=== PATIENT | male | born 1945 | race Caucasian/White ===

== ENCOUNTER 2022-08-17 11:03 | Day surgery (SDC) | payer OTHER ==
[~2022-08-17] VITALS: Ht 172.7 cm; Wt 69.1 kg
[~2022-08-17 11:03] MED LIST: ALBU90OI INH; DOC250 PO; FISH OIL 1,2001 EAC7 PO; Flagyl500 MG PO; Flonase 0.05% N16 GM; GABA400 PO; HYDACE10B PO; HYDACE5 PO; HYDPAM50 PO; LIDO4TS50 TOP; LOPE2C PO; Lisinopril-Hct1 EAC4 PO; METH10 PO; MIRT30 PO; MORP60ER PO; MOTION RELIEF25 MG PO; MULVITA PO; NORT25 PO; OMEP20ER PO; PARO10 PO; PRAZ2 PO; SENN187 PO; SERT100 PO; Zofran8 MG PO
[2022-08-17] MEDS ORDERED: PARO10 PO (12:30)
[2022-08-17] MEDS ORDERED: DRAMAMINE25 M2 PO (12:30)
[2022-08-17] MEDS ORDERED: TRAZ50 PO (12:30)
--- NOTE | 2022-08-17 12:37 | NUR ---
08/17/22 1237 Simran Echevarria CALL LIGHT WITHIN REACH. JUAN IN AT 1220 IN LEFT EYE PLEMAHESHETT IN AT 1223
--- NOTE | 2022-08-17 13:48 | NUR ---
08/17/22 [address] STAFFORD, PT GIVEN TUBE OF ERYTHROMYCIN OPHTHALMIC OINTMENT MCFP 0.5%. PT ADVISED BY DR STAFFORD TO APPLY SMALL AMOUNT ON BOTTOM OF EYELID IF HAVING DISCOMFORT.
== END 2022-08-17 13:54 | disposition home or self-care (01) ==
LOC: ORSCSDS 11:03
PROVIDERS: Ophthalmology
PROC: 08RK3JZ Replacement of Left Lens with Synthetic Substitute, Percutaneous Approach (ICD-10-PCS; principal; 2022-08-17 12:30)
PROC: 08933ZZ Drainage of Left Anterior Chamber, Percutaneous Approach (ICD-10-PCS; principal; 2022-08-17 12:30)
DX: H25.12 Age-related nuclear cataract, left eye (principal); H40.1121 Primary open-angle glaucoma, left eye, mild stage; F32.A Depression, unspecified; I10 Essential (primary) hypertension; J44.9 Chronic obstructive pulmonary disease, unspecified; B19.20 Unspecified viral hepatitis C without hepatic coma; G47.31 Primary central sleep apnea; F43.10 Post-traumatic stress disorder, unspecified; Z79.51 Long term (current) use of inhaled steroids; Z79.899 Other long term (current) drug therapy; Z87.891 Personal history of nicotine dependence
CPT/HCPCS: A9270; J0360; J2001; J2250; J3010; J3301; J7040; V2632

== ENCOUNTER 2022-08-24 11:06 | Day surgery (SDC) | payer OTHER ==
[~2022-08-24] VITALS: Ht 172.7 cm; Wt 68.5 kg
[~2022-08-24 11:06] MED LIST changes: +DRAMAMINE25 M2 PO; +TRAZ50 PO
== END 2022-08-24 13:44 | disposition home or self-care (01) ==
LOC: ORSCSDS 11:06
PROVIDERS: Ophthalmology
PROC: 08DJ3ZZ Extraction of Right Lens, Percutaneous Approach (ICD-10-PCS; principal; 2022-08-24 12:30)
DX: H25.11 Age-related nuclear cataract, right eye (principal); Z96.1 Presence of intraocular lens; H40.1110 Primary open-angle glaucoma, right eye, stage unspecified; I10 Essential (primary) hypertension; G47.33 Obstructive sleep apnea (adult) (pediatric); F43.10 Post-traumatic stress disorder, unspecified; F32.A Depression, unspecified; B19.20 Unspecified viral hepatitis C without hepatic coma; Z87.891 Personal history of nicotine dependence; Z79.899 Other long term (current) drug therapy
CPT/HCPCS: J2001; J2250; J3010; J3301; J7040; V2632

== ENCOUNTER 2022-11-29 17:01 | Inpatient (IN) | payer OTHER ==
[~2022-11-29] VITALS: Ht 172.7 cm; Wt 66.9 kg
[~2022-11-29 17:01] MED LIST changes: +GLYDO11 ML TOP; -LIDO4TS50 TOP
[2022-11-29] MEDS ORDERED: PARO10 PO (17:29)
[2022-11-29] MEDS ORDERED: GUAI600T33 PO (17:29)
[2022-11-29] MEDS ORDERED: DULERA 100 MCG/13 GM INH (17:29)
[2022-11-29] MEDS ORDERED: KETO.5OPSO BOTHEYES (17:30)
[2022-11-29] MEDS ORDERED: PANTOPRAZOLE SO40 M1 PO (17:30)
[2022-11-29] MEDS ORDERED: Voltaren100 GM TOP (17:31)
[2022-11-29 18:20] LABS: Base Excess Venous 2.5 mmol/L; Bicarbonate Venous 25.2 mmol/L (24.0-30.0); PCO2 Venous 49.5 mmHg (38-42); pH Blood Venous 7.36 (7.34-7.37)
[2022-11-29 19:35] LABS: BASOPHILS ABSOLUTE AUTO 0.04 K/mm3 (0.00-0.23); BASOPHILS PERCENT AUTO 1 % (0-2); EOSINOPHILS ABSOLUTE AUTO 0.11 K/mm3 (0.00-0.68); EOSINOPHILS PERCENT AUTO 2 % (0-6); Hematocrit 36.5 % (37.0-53.0); IMMATURE GRAN ABSOLUTE AUTO 0.03 K/mm3 (0.00-0.10); IMMATURE GRAN PERCENT AUTO 1 % (0-1); LYMPHOCYTES PERCENT AUTO 18 % (21-46); MONOCYTES ABSOLUTE AUTO 0.53 K/mm3 (0.16-1.47); MONOCYTES PERCENT AUTO 8 % (4-13); Mean Corpuscular HGB 28.9 pg (26.0-34.0); Mean Corpuscular HGB Conc 32.9 g/dL (31.5-36.5); Mean Corpuscular Volume 88 fL (80-100); Mean Platelet Volume 9.4 fL (9.1-12.4); NEUTROPHILS ABSOLUTE AUTO 4.68 K/mm3 (1.96-9.15); NEUTROPHILS PERCENT AUTO 71 % (41-73); Platelet Count 233 K/mm3 (150-400); RDW Standard Deviation 48.5 fL (35.1-46.3); Red Blood Cell Count 4.15 M/mm3 (4.30-5.90); White Blood Cell Count 6.59 K/mm3 (4.00-11.30)
[2022-11-29 20:07] LABS: Albumin, Blood 2.7 g/dL (3.4-5.0); Albumin/Globulin Ratio 0.7 (0.8-1.8); Bilirubin, Total 0.5 mg/dL (0.1-1.0); Bun/Creatinine Ratio 16.9 (12.0-20.0); Calcium, Blood 8.2 mg/dL (8.5-10.1); Creatinine, Blood 0.89 mg/dL (0.60-1.20); Globulin, Blood 4.1 g/dL (2.2-4.0); Potassium, Blood 3.8 mmol/L (3.5-5.5); Total Protein, Blood 6.8 g/dL (6.4-8.2)
[2022-11-29 20:56] VITALS: BP 150/98
[2022-11-29] MEDS ORDERED: FERSU300 PO (20:58)
--- NOTE | 2022-11-29 22:20 | NUR ---
PATIENT IS A NEW ADMIT FROM THE ED. AXOX 4 AND ONE ASSIST FROM RNORTHAMPTON TO BED. ON 6L O2 NC AND REPORTS RA BASELINE. SOB W/EXERTION. DENIES CHEST PAIN AND N/V. REPORTS NECK PAIN FROM [place]. ORIENTED TO ROOM AND CALL LIGHT SYSTEM. FOOD PROVIDED PER DIET ORDER. WATCHING TV AFTER ASSESSMENT. WCTM
[2022-11-30 03:37] VITALS: BP 141/110
--- NOTE | 2022-11-30 04:04 | NUR ---
SHIFT SUMMARY PATIENT HAD NO ACUTE CHANGES. AXOX 4 AND SBA TO BSC. USES URINAL AT BEDSIDE. ON 6L O2 NC AND SOB W/EXERTION. ROOM AIR BASELINE REPORTING HE JUST HAD OXYGEN DELIVERED TO HIS HOME. [facility] PATIENT. VSS/AFEBRILE. DENIES CHEST PAIN AND N/V. PIV REMAINS INTACT. IV SOLU MEDROL GIVEN PER EMAR. REPORTED NECK PAIN X ONE AND NORCO GIVEN PER EMAR. CALL LIGHT IN REACH. BED IN LOWEST POSITION. WILL CONTINUE TO MONITOR UNTIL DAY SHIFT NURSE ASSUMES CARE.
[2022-11-30 05:33] LABS: BASOPHILS ABSOLUTE AUTO 0.01 K/mm3 (0.00-0.23); BASOPHILS PERCENT AUTO 0 % (0-2); EOSINOPHILS ABSOLUTE AUTO 0.01 K/mm3 (0.00-0.68); EOSINOPHILS PERCENT AUTO 0 % (0-6); Hematocrit 40.3 % (37.0-53.0); Hemoglobin 13.5 g/dL (13.5-17.5); IMMATURE GRAN ABSOLUTE AUTO 0.02 K/mm3 (0.00-0.10); IMMATURE GRAN PERCENT AUTO 0 % (0-1); LYMPHOCYTES ABSOLUTE AUTO 0.41 K/mm3 (0.84-5.20); LYMPHOCYTES PERCENT AUTO 9 % (21-46); MONOCYTES ABSOLUTE AUTO 0.06 K/mm3 (0.16-1.47); MONOCYTES PERCENT AUTO 1 % (4-13); Mean Corpuscular HGB 29.2 pg (26.0-34.0); Mean Corpuscular HGB Conc 33.5 g/dL (31.5-36.5); Mean Corpuscular Volume 87 fL (80-100); Mean Platelet Volume 10.2 fL (9.1-12.4); NEUTROPHILS PERCENT AUTO 89 % (41-73); Platelet Count 254 K/mm3 (150-400); RDW Coefficient Variation 15.1 % (11.7-14.2); RDW Standard Deviation 47.4 fL (35.1-46.3); Red Blood Cell Count 4.63 M/mm3 (4.30-5.90); White Blood Cell Count 4.71 K/mm3 (4.00-11.30)
[2022-11-30 06:00] LABS: Bun/Creatinine Ratio 16.9 (12.0-20.0); Calcium, Blood 8.8 mg/dL (8.5-10.1); Creatinine, Blood 0.77 mg/dL (0.60-1.20); Potassium, Blood 4.4 mmol/L (3.5-5.5)
[2022-11-30 06:08] LABS: BAND PERCENT MAN 1 % (0-8); BASOPHILS PERCENT MAN 0 % (0-2); EOSINOPHILS PERCENT MAN 0 % (0-6); LYMPHOCYTES ABSOLUTE MAN 0.18 K/mm3 (0.84-5.20); LYMPHOCYTES PERCENT MAN 4 % (21-46); MONOCYTES PERCENT MAN 0 % (4-13); NEUTROPHILS ABSOLUTE MAN 4.52 K/mm3 (1.96-9.15); SEG NEUTROPHILS PERCENT MAN 95 % (41-73); TOTAL CELLS COUNTED 100
[2022-11-30 08:01] VITALS: BP 130/84
[2022-11-30 15:00] VITALS: BP 118/76
--- NOTE | 2022-11-30 16:20 | NUR ---
SHIFT SUMMARY PT A&OX4 AND IN PLEASENT MOOD T/O SHIFT. PAIN MEDICATED PER EMAR. VSS. 5L NC, ATTEMPTED TO TITRATE OX-PT DID NOT TOLERATE AT THIS TIME. FRIENDS IN TO SEE PT T/O VISITING HOURS. SBA. VSS. CALL LIGHT W/IN REACH. PULMONOLOGY CONSULTED BY DR. MILLARD THIS SHIFT. PT DENIES KNOWLEDGE OF PULM. FIBROSIS DX.
[2022-11-30 19:20] VITALS: BP 127/91
[2022-11-30 19:23] VITALS: BP 136/114
--- NOTE | 2022-12-01 04:13 | NUR ---
SHIFT SUMMARY PATIENT HAD NO ACUTE CHANGES. AXOX 4 AND SBA TO BR. USES URINAL AT BEDSIDE. BASELINE TREMORS. ON 5L O2 NC. PIV REMAINS INTACT. IV SOLU-MEDROL GIVEN PER EMAR. DENIES CHEST PAIN AND N/V. REPORTED NECK PAIN AND NORCO GIVEN PRN. VSS/AFEBRILE. CALL LIGHT IN REACH. BED IN LOWEST POSITION. WILL CONTINUE TO MONITOR UNTIL DAY SHIFT NURSE ASSUMES CARE.
[2022-12-01 04:36] VITALS: BP 159/109
[2022-12-01 05:49] LABS: Anion Gap 7 mmol/L (6-16); Blood Urea Nitrogen 17 mg/dL (8-24); Bun/Creatinine Ratio 21.5 (12.0-20.0); CO2, Blood 24 mmol/L (21-32); Calcium, Blood 9.7 mg/dL (8.5-10.1); Chloride, Blood 109 mmol/L (98-108); Creatinine, Blood 0.79 mg/dL (0.60-1.20); Glomerular Filtration Rate 92 (60-); Glucose, Blood 147 mg/dL (70-99); Phosphorus, Blood 3.8 mg/dL (2.5-4.9); Potassium, Blood 4.6 mmol/L (3.5-5.5); Sodium, Blood 140 mmol/L (136-145)
[2022-12-01 07:38] VITALS: BP 131/93
[2022-12-01 15:53] VITALS: BP 115/75
--- NOTE | 2022-12-01 18:52 | NUR ---
SHIFT SUMMARY: PATIENT A&OX4. PLEASANT AND COOPERATIVE c CARE. VISIBLE TREMORS TO BUE'S. PER PATIENT STARTED A MONTH AGO AND IT HAS BEEN THE SAME c NO CHANGES. REPORTS PAIN 6-8/10 TO NECK AND ARMS. MEDICATED X2 c NORCO. REPORTS ADEQUATE RELIEF. DENIES CP/PRESSURE, N/V, SOB. PATIENT ON O2 5L VIA NC c SPO2 RANGES 88-95%. RECEIVED SCHEDULED MEDS PER EMAR. VITAL SIGNS REVIEWED. PIV TO RAC SALINE LOCKED. PATIENT UP IN CHAIR TODAY AND TOLERATED WELL. CALL LIGHT IN REACH.
[2022-12-01 19:57] VITALS: BP 140/73
--- NOTE | 2022-12-02 03:09 | NUR ---
SHIFT SUMMARY NOC PT A/O X 4. PLEASANT AND COOPERATIVE WITH CARE. PT HAS VISIBLE TREMORS IN BUE. PT HAD C/O OF PAIN IN HANDS AND WAS MEDICATED PER EMAR. PT ON O2 5L/NC MAINTAINING SPO2 > 92%. PT IS CURRENTLY RESTING WITH BED IN LOWEST POSITION, AND CALL LIGHT WITHIN REACH.
[2022-12-02 04:29] VITALS: BP 148/117
[2022-12-02 04:32] VITALS: BP 147/98
[2022-12-02 05:44] LABS: Albumin, Blood 3.4 g/dL (3.4-5.0); Anion Gap 6 mmol/L (6-16); Blood Urea Nitrogen 27 mg/dL (8-24); Bun/Creatinine Ratio 29.4 (12.0-20.0); CO2, Blood 26 mmol/L (21-32); Calcium, Blood 9.9 mg/dL (8.5-10.1); Chloride, Blood 106 mmol/L (98-108); Creatinine, Blood 0.92 mg/dL (0.60-1.20); Glomerular Filtration Rate 86 (60-); Glucose, Blood 109 mg/dL (70-99); Phosphorus, Blood 3.6 mg/dL (2.5-4.9); Potassium, Blood 4.3 mmol/L (3.5-5.5); Sodium, Blood 138 mmol/L (136-145)
[2022-12-02 07:21] VITALS: BP 154/102
[2022-12-02 09:10] VITALS: BP 120/72
[2022-12-02 14:44] VITALS: BP 114/89
--- NOTE | 2022-12-02 17:47 | NUR ---
SHIFT SUMMARY: NO NEW CHANGES IN PATIENT CONDITION THIS SHIFT. PATIENT A&OX4. PLEASANT AND COOPERATIVE c CARE. PATIENT CONTINUES TO HAVE VISIBLE TREMORS TO BUE'S. REPORTS PAIN TO NECK/ARMS AND LEFT HIP. MEDICATED X1 c TYLENOL AND X1 c NORCO. PATIENT REPORTS GOOD RELIEF. NO BM THIS SHIFT. RECEIVED BOWEL REGIMEN PER ORDER c NO RESULT. PATIENT STATED, "I HAVE BEEN PASSING GAS T/O THE DAY, BUT NO RESULT YET." DR. LIMON (DEPARTMENT HELPER) CAME AND SAW PATIENT TODAY AND ORDER EKG FOR IRREGULAR HR. EKG WAS DONE AND RESULT PLACED IN FRONT OF PATIENT CHART. PATIENT STILL ON 5L OF O2 VIA NC c SPO2 RANGES 92-96%. PATIENT SITTING UP IN CHAIR TODAY AND TOLERATED WELL. EATING AND DRINKING WELL. CONTINENT OF URINE AND USES URINAL INDEPENDENTLY. VITAL SIGNS REVIEWED. RECEIVED SCHEDULED MEDS PER EMAR. CALL LIGHT IN REACH.
[2022-12-02 20:07] LABS: ANA DIRECT Negative (Negative); ANTI-DNA (DS) AB QN <1 IU/mL (0-9); RNP ANTIBODIES 0.3 AI (0.0-0.9); SJOGREN'S ANTI-SS-A <0.2 AI (0.0-0.9); SJOGREN'S ANTI-SS-B <0.2 AI (0.0-0.9); SMITH ANTIBODIES <0.2 AI (0.0-0.9)
--- NOTE | 2022-12-03 03:06 | NUR ---
SHIFT SUMMARY NOC PT A/O X 4. PLEASANT AND COOPERATIVE WITH CARE. PT ON O2 5L/NC MAINTAINING SPO2 > 92%. NO C/O OF SOB. PT HAS 2 VIEW CHEST X RAY SCHEDULED FOR 12/03/22 AND OUTPATIENT FOLLOW UP FOR PFT. NO ACUTE CHANGES TO REPORT. PT HAD SOLU MEDROL DOSE DECREASED AND FREQUENCY TO BID. PT TREMORS HAVE DECREASED AFTER DOSE ADJUSTMENT. PT IS CURRENTLY RESTING WITH BED IN LOWEST POSITION, AND CALL LIGHT WITHIN REACH.
[2022-12-03 04:28] VITALS: BP 143/93
--- NOTE | 2022-12-03 07:30 | NUR ---
ASSUMED CARE: PT RESTING QUIETLY AT THIS TIME. 5L O2 VIA NC. C/O PAIN. NIGHT RN ADMINISTERING PAIN MEDICATION. NO FURTHER NEEDS OR CONCERNS AT THIS TIME.
[2022-12-03 07:35] VITALS: BP 134/94
--- NOTE | 2022-12-03 14:14 | NUR ---
RESPIRATORY THERAPY AT BEDSIDE FOR OXYGEN EVAL WITH AMBULATION.
--- NOTE | 2022-12-03 14:30 | NUR ---
RESPIRATORY THERAPY PERFORMED HOME O2 EVALUATION AND PT WAS UP TO 8L WITH EXERTION. NOTIFIED DR MILLARD TO LET HER KNOW OF PT'S CONDITION AND SHE STATES TO HOLD DC FOR NOW AND WILL REEVALUATE DAY TO DAY
[2022-12-03] MEDS ORDERED: LEVO750 PO (14:36)
[2022-12-03] MEDS ORDERED: MIRALAX17 GM PO (14:36)
[2022-12-03] MEDS ORDERED: VISBIOME 112.51 EACH PO (14:38)
[2022-12-03] MEDS ORDERED: Prednisone10 MG PO (14:39)
[2022-12-03] MEDS ORDERED: HYDR1TAB94 PO (14:41)
[2022-12-03 14:53] VITALS: BP 102/82
--- NOTE | 2022-12-03 18:00 | NUR ---
SHIFT SUMMARY: PT IS ENERGETIC WITH CONVERSATION AND COOPERATIVE WITH CARE. PT USING O2 VIA NC AT 6LPM, O2 SATS >93%. PT NEEDS ASSISTANCE WITH MEAL TRAY SETUP AND FINE MOTOR SKILLS. VISIBLE TREMORS TO HANDS NOTED. O2 AMBULATION EVALUATION PERFORMED WITH THE PT AMBULATING A SMALL DISTANCE BEFORE REQUIRING REST AND A TEMPORARY INCREASE OF OXYGEN FLOW RATE. PAIN REPORTED TO SHOULDERS AND PT MEDICATED PER EMAR WITH REPORTED MINIMAL RELIEF. SEVERAL VISITORS IN TO SEE PT TODAY. PT ABLE TO MAKE HIS NEEDS KNOWN AND CALL SMITH WITHIN REACH.
[2022-12-03 19:58] VITALS: BP 153/89
--- NOTE | 2022-12-04 03:59 | NUR ---
SHIFT SUMMARY NOC PT A/O X 4. PLEASANT AND COOPERATIVE WITH CARE. PT HAD HOME 02 STUDY PERFORMED DURING DAY SHIFT AND DID NOT TOLERATE AMBULATION FOR VERY LONG AND WAS BUMPED FROM 5L TO 8L TO RECOVER FROM HYPOXEMIA. PT WILL TRY AGAIN TOMORROW TO SEE IF O2 CAN BE MAINTAINED AT CURRENT BASELINE OF 5L. DURING CHANGE OF SHIFT ROUNDING RT ASSESSMENT FOUND PT SPO2 AT 87% AND INCREASED O2 TO 6L. PT HAD C/O OF PAIN IN NECK AND MEDICATED PER EMAR X 2. PT IS EXPECTING TO DISCHARGE HOME SUNDAY IF HOME 02 EVALUATIONS IMPROVE. PT IS CURRENTLY RESTING WITH BED IN LOWEST POSITION, AND CALL LIGHT WITHIN REACH.
[2022-12-04 04:23] VITALS: BP 143/121
[2022-12-04 05:16] VITALS: BP 150/102
[2022-12-04 07:36] VITALS: BP 148/122
[2022-12-04 15:56] VITALS: BP 118/75
--- NOTE | 2022-12-04 16:20 | NUR ---
NO ACUTE CHANGES. PT CONTINUES ON 6L NC MAINTAINING LOW 90s O2. PT AOX4 AND INDEPENDENT IN ROOM. NO DISTRESS NOTED. DISCHARGE IN ON HOLD HE NEEDS O2 SUPPLIES SENT TO HIS HOME. [employer] IS WORKING ON THIS. CALL LIGHT WITHIN REACH WILL CONTINUE TO MONITOR.
[2022-12-04 19:33] VITALS: BP 118/69
[2022-12-05 04:10] VITALS: BP 154/111
--- NOTE | 2022-12-05 04:39 | NUR ---
SHIFT SUMMARY: PT A&O X4. PT PLEASANT AND COOPERATIVE WITH CARE. NO ACUTE CHANGES WITH PT THIS SHIFT. PT RECEVIED PAIN MEDICATIONS TWICE THIS SHIFT FOR 7/10 PAIN IN NECK AND BILAT ARMS. PT ASLEEP MOST OF THE SHIFT. D/C ORDERS IN. [facility]OUGH [facility]. RT TRANSITIONED PT TO HIGH FLOW ON . PT INDEPENDENT IN ROOM. CALL LIGHT IN REACH. BED IN LOWEST POSITION. WILL CONTINUE TO MONITOR.
[2022-12-05 07:36] VITALS: BP 121/97
[2022-12-05 10:57] LABS: BASOPHILS ABSOLUTE AUTO 0.06 K/mm3 (0.00-0.23); BASOPHILS PERCENT AUTO 1 % (0-2); EOSINOPHILS ABSOLUTE AUTO 0.11 K/mm3 (0.00-0.68); EOSINOPHILS PERCENT AUTO 1 % (0-6); Hematocrit 40.1 % (37.0-53.0); Hemoglobin 13.5 g/dL (13.5-17.5); IMMATURE GRAN ABSOLUTE AUTO 0.21 K/mm3 (0.00-0.10); IMMATURE GRAN PERCENT AUTO 2 % (0-1); LYMPHOCYTES ABSOLUTE AUTO 1.06 K/mm3 (0.84-5.20); LYMPHOCYTES PERCENT AUTO 11 % (21-46); MONOCYTES ABSOLUTE AUTO 0.61 K/mm3 (0.16-1.47); MONOCYTES PERCENT AUTO 6 % (4-13); Mean Corpuscular HGB Conc 33.7 g/dL (31.5-36.5); Mean Corpuscular Volume 86 fL (80-100); Mean Platelet Volume 9.8 fL (9.1-12.4); NEUTROPHILS ABSOLUTE AUTO 7.56 K/mm3 (1.96-9.15); NEUTROPHILS PERCENT AUTO 79 % (41-73); Platelet Count 282 K/mm3 (150-400); RDW Coefficient Variation 15.2 % (11.7-14.2); RDW Standard Deviation 47.9 fL (35.1-46.3); Red Blood Cell Count 4.66 M/mm3 (4.30-5.90); White Blood Cell Count 9.61 K/mm3 (4.00-11.30)
[2022-12-05 11:25] LABS: Albumin, Blood 2.9 g/dL (3.4-5.0); Anion Gap 5 mmol/L (6-16); Blood Urea Nitrogen 27 mg/dL (8-24); Bun/Creatinine Ratio 28.8 (12.0-20.0); CO2, Blood 29 mmol/L (21-32); Calcium, Blood 9.2 mg/dL (8.5-10.1); Chloride, Blood 103 mmol/L (98-108); Creatinine, Blood 0.94 mg/dL (0.60-1.20); Glomerular Filtration Rate 84 (60-); Glucose, Blood 120 mg/dL (70-99); Phosphorus, Blood 3.1 mg/dL (2.5-4.9); Potassium, Blood 4.3 mmol/L (3.5-5.5); Sodium, Blood 137 mmol/L (136-145)
[2022-12-05 16:03] VITALS: BP 127/74
--- NOTE | 2022-12-05 16:39 | NUR ---
NO ACUTE CHANGES AT THIS TIME. PT HAD HIS O2 PLACED DOWN TO 4L BY RT. PT TREATED FOR PAIN PER EMAR. NO DISTRESS NOTED AND INDEPENDENT IN ROOM. CALL [facility] WITHIN REACH WILL CONTINUE TO MONITOR.
[2022-12-05 19:28] VITALS: BP 101/74
[2022-12-06 05:07] VITALS: BP 136/98
--- NOTE | 2022-12-06 05:11 | NUR ---
VISUAL PRESENTATION MANAGER SUMMARY NO ACUTE EVENTS THIS SHIFT. A&OX4. PATIENT EFFECTIVELY COMMUNICATES NEEDS. VSS. RR EVEN AND UNLABORED AT REST ON 4L/MIN. SPO2 >92%. PATIENT DENIES PAIN, SOB, OR OTHER SYMPTOMS. BED LOW AND LOCKED. CALL LIGHT WITHIN REACH. THIS RN WILL CONTINUE TO MONITOR.
[2022-12-06 07:52] VITALS: BP 135/93
[2022-12-06 16:17] VITALS: BP 119/80
--- NOTE | 2022-12-06 17:17 | NUR ---
SHIFT SUMMARY PT IS ALERT AND ORIENTED X4. INDEPENDENT IN THE ROOM. PT ON 4L NC AT REST 94%. HOME O2 EVAL TODAY. PLS SEE RT NOTE. NO ACUTE CHANGES THIS SHIFT. PT PLEASANT AND COOPERATIVE.
[2022-12-06 19:34] VITALS: BP 111/83
--- NOTE | 2022-12-07 03:32 | NUR ---
XEROX MACHINE MECHANIC SUMMARY NO ACUTE EVENTS THIS SHIFT. A&OX4. PATIENT EFFECTIVELY COMMUNICATES NEEDS. VSS. RR EVEN AND UNLABORED AT REST ON 4L/MIN 2. SPO2 >92%. PAIN ASSESSED AND MEDICATED PER EMAR. PATIENT NOTED TO SLEEP THROUGHOUT THE NIGHT WITHOUT ANY ACUTE CONCERNS. BED LOW AND LOCKED. CALL LIGHT WITHIN REACH. THIS RN WILL CONTINUE TO MONITOR.
[2022-12-07 04:11] VITALS: BP 141/95
[2022-12-07 07:24] VITALS: BP 140/96
--- NOTE | 2022-12-07 07:30 | NUR ---
ASSUMED CARE: RT AT BEDSIDE GIVING PT BREATHING TX AT THIS TIME. PT WEARING 5L NC AT REST. NIGHT RN REPORTS SOB ON EXERTION. NO FURTHER NEEDS OR CONCERNS AT THIS TIME.
[2022-12-07 14:38] VITALS: BP 94/55
--- NOTE | 2022-12-07 15:50 | NUR ---
PT TO AND FROM CT VIA WHEELCHAIR, ESCORTED BY HOSPITAL STAFF.
--- NOTE | 2022-12-07 17:44 | NUR ---
SHIFT SUMMARY: PT REMAINS ON 5L O2 VIA NC. CT PE PERFORMED THIS SHIFT. RECIEVING BREATHING TX T/O DAY PER RT. AWAITING FURTHER TITRATION PRIOR TO DC. [facility] IS FOR [facility]'S HOME O2
[2022-12-07 20:10] VITALS: BP 109/63
--- NOTE | 2022-12-08 04:40 | NUR ---
SHIFT SUMMARY PT UP TO RESTROOM DURING BEDSIDE REPORT- PT REQUESTED PAIN MEDICATION WITH HS MEDICATIONS FOR NECK BACK PAIN- PT CURRENTLY ON 5L O2 VIA NC- 2340 PT AWAKENED FOR BREATHING TX X 2 IN SHIFT- PT TOLERATED WELL - PT REPORTED PAIN TOLERABLE- PT RETURNED TO SLEEPING- PT INDEPENDENT IN ROOM, BED LOW POSITION, CALL LIGHT WITHIN REACH
[2022-12-08 04:51] VITALS: BP 136/98
--- NOTE | 2022-12-08 07:11 | NUR ---
ASSUMED CARE: PT SITTING UP IN BED WATCHING TV. 5L O2 VIA NC. NIGHT RN RECENTLY MEDICATED FOR SHOULDER PAIN. NO ACUTE NEEDS OR CONCERNS AT THIS TIME.
[2022-12-08 07:12] VITALS: BP 133/94
--- NOTE | 2022-12-08 11:13 | NUR ---
RT DOING HOME O2 EVALUATION WITH PT AT THIS TIME
[2022-12-08 15:25] VITALS: BP 112/78
--- NOTE | 2022-12-08 19:08 | NUR ---
SHIFT SUMMARY: PT DID ANOTHER HOME O2 EVALUATION TODAY WITH 11 L NEEDED WITH EXERTION. DR CRANE SAW PT AND ORDERED ECHO FOR TOMORROW. PT ON 5L NC AT REST. SITTING UP IN CHAIR FOR DINNER. DENIES FURTHER NEEDS OR CONCERNS
[2022-12-08 19:48] VITALS: BP 128/83
[2022-12-08 19:49] VITALS: BP 128/83
[2022-12-09 04:46] VITALS: BP 131/86
[2022-12-09 05:37] LABS: PCO2 Arterial 48.8 mmHg (35-45); PO2 Arterial 62.1 mmHg (80-100); pH Blood Arterial 7.44 (7.35-7.45)
--- NOTE | 2022-12-09 06:04 | NUR ---
SHIFT SUMMARY PT SITTING UP IN CHAIR DURING BEDSIDE ROUNDS= PT REQUESTED NORCO AND TYLENOL FOR NECK AND ARM PAIN- PT REPORTED FEELING OVERHEATED- GOT FAN FOR PT- PT CURRENTLY ON 5L OXYGEN WHICH IS BASELINE- PT SOB WHEN AMBULATING- PT REPORTS FEELING LIKE IT TAKES LESS TIME TO RECOVER EACH TIME HE AMBULATES- PT INDEPENDENT IN ROOM- 0530 RT IN DOING ABG -PT REQUESTED PAIN MEDICATION- GAVE TYLENOL AND NORCO- PT SITTING UP IN CHAIR READING AND DRINKING COFFE-CALL LIGHT WITHIN REACH
[2022-12-09 07:35] VITALS: BP 127/83
[2022-12-09 15:15] VITALS: BP 114/85
--- NOTE | 2022-12-09 16:25 | NUR ---
NO ACUTE CHANGES. PT CONTINUES ON HIGH FLOW 5L MAINTAINING 90% O2. PT INDEPENDENT IN ROOM. TREATED FOR PAIN PER EMAR. NO DISTRESS NOTED AND CALL LIGHT WITHIN REACH. WILL CONTINUE TO MONITOR.
[2022-12-09 20:06] VITALS: BP 104/67
[2022-12-10 04:49] VITALS: BP 135/95
[2022-12-10 04:51] LABS: Hemoglobin 13.2 g/dL (13.5-17.5); Mean Corpuscular HGB 29.3 pg (26.0-34.0); Mean Corpuscular Volume 89 fL (80-100); Platelet Count 322 K/mm3 (150-400); RDW Coefficient Variation 15.4 % (11.7-14.2); Red Blood Cell Count 4.51 M/mm3 (4.30-5.90); White Blood Cell Count 9.69 K/mm3 (4.00-11.30)
--- NOTE | 2022-12-10 05:05 | NUR ---
SHIFT SUMMARY: PT A&O X4. PT PLEASANT AND COOPERATIVE WITH ALL CARE. PT INDEPENDENT IN ROOM. NO ACUTE CHANGES WITH PT THIS SHIFT. PT C/O / PAIN TWICE THIS SHIFT IN NECK AND BILAT ARMS. MEDICATED PER EMAR. PT SLEPT MOST OF SHIFT. PT CURRENTLY ON 5L MAINTAINING SATS >92%. PLAN TO CONTINUE TO TITRATE 02 NEEDS TOLERATED. REPEAT HOME 02 TO BE COMPLETED TOMORROW. CALL LIGHT IN REACH. BED IN LOWEST POSITION. WILL CONTINUE TO MONITOR.
[2022-12-10 05:07] LABS: Albumin, Blood 2.9 g/dL (3.4-5.0); Anion Gap 2 mmol/L (6-16); Blood Urea Nitrogen 32 mg/dL (8-24); Bun/Creatinine Ratio 31.1 (12.0-20.0); CO2, Blood 33 mmol/L (21-32); Chloride, Blood 105 mmol/L (98-108); Creatinine, Blood 1.03 mg/dL (0.60-1.20); Glomerular Filtration Rate 75 (60-); Glucose, Blood 96 mg/dL (70-99); Phosphorus, Blood 3.8 mg/dL (2.5-4.9); Potassium, Blood 4.8 mmol/L (3.5-5.5); Sodium, Blood 140 mmol/L (136-145)
[2022-12-10 05:36] LABS: BASOPHILS PERCENT MAN 0 % (0-2); EOSINOPHILS PERCENT MAN 0 % (0-6); LYMPHOCYTES ABSOLUTE MAN 1.55 K/mm3 (0.84-5.20); LYMPHOCYTES PERCENT MAN 16 % (21-46); METAMYELOCYTE ABSOLUTE MAN 0.19 K/mm3 (0.00-0.00); METAMYELOCYTE PERCENT MAN 2 % (0-0); MONOCYTES ABSOLUTE MAN 0.77 K/mm3 (0.16-1.47); MONOCYTES PERCENT MAN 8 % (4-13); MYELOCYTE ABSOLUTE MAN 0.09 K/mm3 (0.00-0.00); MYELOCYTE PERCENT MAN 1 % (0-0); NEUTROPHILS ABSOLUTE MAN 7.07 K/mm3 (1.96-9.15); SEG NEUTROPHILS PERCENT MAN 73 % (41-73); TOTAL CELLS COUNTED 100
[2022-12-10 07:49] VITALS: BP 130/76
[2022-12-10 15:21] VITALS: BP 103/76
--- NOTE | 2022-12-10 17:20 | NUR ---
NO ACUTE CHANGES PT AOX4 AND COOPERATIVE OF CARE. NO DISTRESS NOTED AND MAINTAINING 90% O2 ON 5L HIGH FLOW. PT IS INDEPENDENT IN ROOM AND ABLE TO MAKE NEEDS KNOWN. TREATED FOR PAIN PER EMAR.WILL CONTINUE TO MONITOR CALL LIGHT WITHIN REACH.
[2022-12-10 19:35] VITALS: BP 112/71
--- NOTE | 2022-12-11 04:24 | NUR ---
SHIFT SUMMARY: PT A&O X4. PT PLEASANT AND COOPERATIVE WITH ALL CARE. NO ACUTE CHANGES WITH PT THIS SHIFT. PT C/O 01/08 PAIN THIS SHIFT IN NECK AND BILAT ARMS. MEDICATED PER EMAR. PLAN FOR PT TO HAVE REPEAT HOME O2 EVAL TODAY. PT CURRENTLY ON 5L HIGH FLOW MAINTAINING SATS >90%. PT INDEPENDENT IN ROOM. CALL LIGHT IN REACH. BED IN LOWEST POSITION. WILL CONTINUE TO MONITOR.
[2022-12-11 06:25] VITALS: BP 115/92
[2022-12-11 08:14] VITALS: BP 135/86
--- NOTE | 2022-12-11 17:12 | NUR ---
DISCHARGE NOTE PT DISCHARGED TO HOME, PICKED UP BY HIS . ALAN DELIVERED THE O2 AND WAS SENT HOME WITH THE PT. IV REMOVED. DISCHARGED EDUCATION AND INFOMRATION PROVIDED. MEDICATIONS FAXED TO THE PHARMACY OF HIS CHOICE.
== END 2022-12-11 17:13 | disposition home or self-care (01) | DRG 193 ==
LOC: ER 17:01 → MEDS 17:02 → ENPENDDIS 12-04 11:24 → MEDS 12-11 17:13
PROVIDERS: Internal Medicine; Internal Medicine Critical Care Medicine; Nurse Practitioner Acute Care; Student in an Organized Health Care Education/Training Program; ADMIT Internal Medicine
PROC: 5A0945A Assistance with Respiratory Ventilation, 24-96 Consecutive Hours, High Flow/Velocity Cannula (ICD-10-PCS; 2022-12-08)
PROC: 4A033R1 Measurement of Arterial Saturation, Peripheral, Percutaneous Approach (ICD-10-PCS; principal; 2022-12-09)
DX: J18.9 Pneumonia, unspecified organism (principal); J96.21 Acute and chronic respiratory failure with hypoxia; F11.20 Opioid dependence, uncomplicated; J98.11 Atelectasis; C34.01 Malignant neoplasm of right main bronchus; K21.9 Gastro-esophageal reflux disease without esophagitis; I10 Essential (primary) hypertension; G47.33 Obstructive sleep apnea (adult) (pediatric); F43.12 Post-traumatic stress disorder, chronic; I49.9 Cardiac arrhythmia, unspecified; M06.9 Rheumatoid arthritis, unspecified; G89.4 Chronic pain syndrome; K59.00 Constipation, unspecified; M25.552 Pain in left hip; M41.9 Scoliosis, unspecified; R91.8 Other nonspecific abnormal finding of lung field; R59.1 Generalized enlarged lymph nodes; H40.9 Unspecified glaucoma; Z87.891 Personal history of nicotine dependence; Z99.81 Dependence on supplemental oxygen; Z98.890 Other specified postprocedural states; Z87.39 Personal history of other diseases of the musculoskeletal system and connective tissue; Z96.659 Presence of unspecified artificial knee joint; Z90.49 Acquired absence of other specified parts of digestive tract; Z99.89 Dependence on other enabling machines and devices; Z91.148 Patient's other noncompliance with medication regimen for other reason; Z88.1 Allergy status to other antibiotic agents; Z88.8 Allergy status to other drugs, medicaments and biological substances; Z79.899 Other long term (current) drug therapy; J84.112 Idiopathic pulmonary fibrosis
CPT/HCPCS: 36415; 36600; 71045; 71046; 71250; 71260; 80048; 80053; 80069; 82803; 83880; 84145; 84484; 85025; 86200; 86225; 86235; 86430; 87070; 87205; 93005; 93010; 93306; 94640; 94664; 94760; 94761; 94762; 96365; 96372; 96375; 96376; 99285-25; A9270; G0378; J1650; J1956; J2920; J2930; J7030; J7512; Q9967